=== PATIENT | male | born 1980 | race Hispanic/Latino ===

== ENCOUNTER 2022-11-08 20:39 | Emergency (ER) | payer BC | END 2022-11-08 22:19 | disposition left against medical advice (07) | LOC: EDH 20:39 | DX: T81.31XA Disruption of external operation (surgical) wound, not elsewhere classified, initial encounter (principal); Z53.21 Procedure and treatment not carried out due to patient leaving prior to being seen by health care provider; X58.XXXA Exposure to other specified factors, initial encounter ==

== ENCOUNTER 2025-04-29 18:11 | Emergency (ER) | payer SELFPAY ==
[~2025-04-29] VITALS: Ht 165.1 cm; Wt 85.7 kg
[2025-04-29 19:00] LABS: IMMATURE GRANULOCYTE ABSOLUTE 0.03 K/uL (0-1); NUCLEATED RED BLOOD CELLS 0.0 % (0.0-0.19); PLATELET COUNT (AUTO) 318 K/uL (130-400); RED BLOOD CELL COUNT(AUTO) 5.50 MIL/uL (4.50-6.20); RED CELL DISTRIBUTION WIDTH 12.6 % (11.0-15.5); WHITE BLOOD COUNT (AUTO) 9.7 K/uL (4.8-10.8)
[2025-04-29 19:09] LABS: CREATININE 1.0 mg/dL (0.5-1.3); GLOMERULAR FILTR. RATE CALC 96.0 mL/min (>90); GLUCOSE,RANDOM 106.0 mg/dL (70-105); SODIUM SERUM 138.0 mmol/L (136-145); UREA NITROGEN, BLOOD 13.0 mg/dL (7-18)
[2025-04-29 19:14] LABS: CREATINE KINASE, TOTAL 94.0 U/L (21-232)
--- NOTE | 2025-04-29 19:27 | ERN ---
ED Note History of Present Illness Stated Complaint: CP Chief Complaint: Chest Pain Time Seen by MD: 18:57 Time Seen by Midlevel: 18:57 Dictation: Patient is a 45-year-old male with no significant past medical history who presents to the emergency department with complaints of left-sided intermediate chest pain. Patient reports that last Thursday he slept wrong in his chest started hurting but then it went away and it started again two days ago. Patient reports occasional shortness of breath but denies any current shortness of breath. Denies any upper respiratory symptoms. Patient does report recent travel. Allergies: Coded Allergies: No Known Drug Allergies (Unverified Allergy, Unknown, 04/29/25) Past Medical History Past Medical History: No Pertinent History Surgical History: None RN Note Reviewed/Agreed w/PFSH: Yes Review of System Dictation Constitutional: Negative for fever,chills, and weight loss Eyes: Negative for injury, pain,redness, and discharge ENT: Negative for injury,pain or swelling Cardiovascular: Negative for palpitations, and edema positive for chest pain Respiratory: Negative for , cough, and wheezing, positive for shortness of breath Abdomen/GI: Negative for abdominal pain, nausea, vomiting, diarrhea, and cons tipation Back: Negative for injury and pain : Negative for injury, bleeding and discharge MS/Extremity: Negative for injury and deformity Skin: Negative for rash, and discoloration Neuro: Negative for headache, weakness, numbness, tingling, and seizure Psych: Negative for suicide ideation, homicidal ideation, and hallucinations Initial Vital Sign VS Vital Signs Date Time Temp Pulse Resp B/P (MAP) Pulse Ox O2 Delivery O2 Flow Rate FiO2 04/29/25 18:12 98.4 60 18 144/87 97 Room Air 0 04/29/25 18:16 21 Physical Exam Dictation Vital Signs reviewed General Appearance: Alert, oriented x 3, no acute distress, well developed, nourished. Head and Face: non-traumatic. Eyes: PERRL, pink conjunctivas, eyelid no trauma, anterior chamber with arcus senilis. Ears: Pinnas intact and no signs of trauma or erythema ear canals clear and no discharge TM no erythema Nose: No discharge, no bleeding. Oropharynx: Mouth normal, tongue pink. pharynx clear,no erythema, tonsils no exudates, no abscesses noted, mucous membrane moist Neck: Supple, non-tender, no thyromegaly, no masses, no JVD, no bruits Breast:Deferred Chest:No tenderness, no crepitus, no paradoxical movement, no retractions Lungs:Clear, well-ventilated, symmetric, no rales, no wheezing, no rhonchi, no stridor, good breath sounds bilaterally Heart: Regular rate, regular rhythm, no murmur, no gallops Vascular: no peripheral edema, Abdomen: Soft, positive bowel sounds, nondistended, no guarding, nontender, no rebound, no masses no hepatomegaly, no splenomegaly, no Valente's sign, no hernias. Rectal: Deferred Genital: Deferred Neurological: Normal speech, motor function intact, sensory function intact Musculoskeletal: Neck nontender, full range of motion, back nontender, full range of motion, Extremities: nontender, full range of motion Skin: Color pink, dry, no turgor, no rash, no lacerations, no abrasions, no contusions. Lymphatic: Deferred Results (Laboratory/Radiology) Laboratory/Radiology Laboratory Tests Test 04/29/25 18:54 04/29/25 20:33 White Blood Count 9.7 K/uL (4.8-10.8) Red Blood Count 5.50 MIL/uL (4.50-6.20) Hemoglobin 16.1 g/dL (14.0-18.0) Hematocrit 47.4 % (42-54) Mean Corpuscular Volume 86.2 fL (79-99) Mean Corpuscular Hemoglobin 29.3 pg (27.0-33.0) Mean Corpuscular Hemoglobin Concent 34.0 g/dL (32.0-36.0) Red Cell Distribution Width 12.6 % (11.0-15.5) Platelet Count 318 K/uL (130-400) Mean Platelet Volume 9.8 fL (7.5-10.5) Immature Granulocyte % (Auto) 0.3 % (0-1) Neutrophils (%) (Auto) 67.5 % (40.0-77.0) Lymphocytes (%) (Auto) 24.4 % (21.0-51.0) Monocytes (%) (Auto) 6.7 % (3.0-13.0) Eosinophils (%) (Auto) 0.7 % (0.0-8.0) Basophils (%) (Auto) 0.4 % (0.0-5.0) Neutrophils # (Auto) 6.5 K/uL (1.8-7.7) Lymphocytes # (Auto) 2.4 K/uL (1.0-4.8) Monocytes # (Auto) 0.7 K/uL (0.1-1.0) Eosinophils # (Auto) 0.07 K/uL (0.00-0.70) Basophils # (Auto) 0.04 K/uL (0.00-0.20) Absolute Immature Granulocyte (auto 0.03 K/uL (0-1) Nucleated Red Blood Cells 0.0 % (0.0-0.19) Sodium Level 138 mmol/L (136-145) Potassium Level 3.7 mmol/L (3.5-5.1) Chloride Level 101 mmol/L (101-111) Carbon Dioxide Level 28 mmol/L (21-32) Blood Urea Nitrogen 13 mg/dL (7-18) Creatinine 1.0 mg/dL (0.5-1.3) Glomerular Filtration Rate Calc 96 mL/min (>90) Random Glucose 106 mg/dL (70-105) H Total Calcium 8.7 mg/dL (8.5-10.1) Total Creatine Kinase 94 U/L (21-232) Troponin I High Sensitivity 10 ng/L (4-75) 8 ng/L (4-75) Lipase 30 U/L (16-77) REASON: CHEST PAIN ORDERING PHYSICIAN: JEFF TALLEY MD PROCEDURE: CXR1VW - CHEST 1VW EXAM: CR Chest, 1 View. CLINICAL HISTORY: CHEST PAIN COMPARISON: None provided. FINDINGS: LUNGS: There is no mass, infiltrate, or acute pulmonary abnormality. PLEURAL SPACES: No pleural effusion or pneumothorax. MEDIASTINUM: Cardiac size and mediastinal contours within normal limits. BONES: No aggressive appearing osseous lesion seen. IMPRESSION: No acute cardiopulmonary pathology is evident. /[place] Labs Reviewed?: Yes EKG: (+) rhythm (Sinus rhythm) EKG Comment: Date:04/29/2025 Time:1809 Ventricular rate:62 [place] interval:141 QRS duration:74 QT/QTc:372//377 EKG interpretation: Sinus rhythm Reviewed by ED Attending no STEMI ED Course ED Course Orders Procedure Category Date Status Time 12 Lead Ekg Tracing- EKG 04/29/25 Logged Technical 18:20 Drug Screen Urine LAB 04/29/25 Logged 18:32 Vital Signs Per CPOE 04/29/25 Transmitted Routine 18:32 Chest 1vw RAD 04/29/25 Resulted 18:32 Oxygen By Nc/Pulse Ox CPOE 04/29/25 Transmitted 18:32 Maintain Iv CPOE 04/29/25 Transmitted 18:32 Iv Insertion CPOE 04/29/25 Transmitted 18:32 Cardiac Monitoring CPOE 04/29/25 Transmitted 18:32 Pulse Oximetry With CPOE 04/29/25 Transmitted Vs And Prn 18:32 Cbc With Differential LAB 04/29/25 Complete 18:32 Activity: Br W/Brp CPOE 04/29/25 Transmitted With Assist 18:32 Creatine Kinase, Total LAB 04/29/25 Complete 18:32 Troponin I High LAB 04/29/25 Complete Sensitivity 18:32 Urinalysis Profile LAB 04/29/25 Logged 18:32 Basic Metabolic Panel LAB 04/29/25 Complete 18:32 Lipase LAB 04/29/25 Complete 18:58 Pantoprazole 40mg Inj PHA 04/29/25 Complete (Protonix 40mg Inj 19:30 Troponin I High LAB 04/29/25 Complete Sensitivity 19:36 Current Medications Medications (Trade) Dose Ordered Sig/Jarvis Route PRN Reason Start Time Stop Time Status Last Admin Dose Admin Pantoprazole Sodium (PROTonix 40MG INJ) 40 mg ONCE ONCE IVP 04/29/25 19:30 04/29/25 19:31 DC 04/29/25 19:40 Vital Signs Date Time Temp Pulse Resp B/P (MAP) Pulse Ox O2 Delivery O2 Flow Rate FiO2 04/29/25 19:44 98.6 53 18 132/81 98 Room Air* 0 04/29/25 18:16 98.4 60 18 144/87 97 Room Air* 0 04/29/25 18:12 98.4 60 18 144/87 97 Room Air 0 HEART Score Response (Comments) Value History: Moderate suspicion (+1) 1 EKG: Normal 0 Age: < 45yrs (0) 0 Risk Factors: 1-2 risk factors (+1) 1 Initial Troponin: Normal limit (0) 0 Total 2 Medical Decision Making MDM Patient is a 45-year-old male with no significant past medical history who presents to the emergency department with complaints of left-sided intermediate chest pain. Patient reports that last Thursday he slept wrong in his chest started hurting but then it went away and it started again two days ago. Patient reports occasional shortness of breath but denies any current shortness of breath. Denies any upper respiratory symptoms. Patient does report recent travel. CBC showed no leukocytosis, no anemia, chemistry showed no electrolyte imbal ance, negative troponin x2, chest x-ray showed no acute pathology. Patient currently not having any chest pain. On physical exam patient is in no acute distress, nontoxic appearance, no swelling to lower extremities, not tachycardic, not hypoxic. Patient's symptoms could be related to musculoskeletal. Patient with a low heart score. Patient will be discharged to follow up with PCP. Differential diagnosis: ACS, costochondritis, anxiety, gastritis Need for hospitalization: Patient does not meet criteria for hospitalization. There are no social concerns with this patient. DX & DISP Disposition: Discharge Departure Impression: Primary Impression: Atypical chest pain Condition: Stable Additional Instructions: Your labs were unremarkable. Your chest x-ray were normal. Please follow up with your primary doctor in 1-2 days. If anything worsens please return to ER. FOLLOW-UP WITH PRIMARY CARE PROVIDER IN 1 TO 2 DAYS. TAKE MEDICATIONS DIRECTED HERE IN THE EMERGENCY ROOM. OKAY TO CONTINUE HOME MEDICATIONS UNLESS OTHERWISE DISCUSSED DURING YOUR VISIT IN THE EMERGENCY ROOM TODAY. RETURN TO YOUR NEAREST EMERGENCY ROOM IF SYMPTOMS WORSEN OR IF THERE IS NO IMPROVEMENT. CALL 911 IF YOU NEED IMMEDIATE ASSISTANCE. TAKE TYLENOL [id number] NEE DED AND IF NO CONTRAINDICATIONS ARE PRESENT. INCREASE ORAL HYDRATION. A WOUND CULTURE OR URINE CULTURE WAS ORDERED HERE IN THE EMERGENCY ROOM DEPARTMENT PLEASE FOLLOW-UP WITH PRIMARY CARE PROVIDER AND ADVISE THEM TO GET REPEAT PORTS FROM OUR FACILITY. IF YOU HAD ANY HEMA WRAP/SPLINTS THAT WERE APPLIED HERE, PLEASE DO NOT REMOVE THEM UNTIL YOU SEE YOUR PRIMARY CARE OR SPECIALTY. Referrals: SELF,REFERRAL (PCP) Time of Disposition: 21:27 I have reviewed the case, and I agree with, Diagnosis and Plan [facility] Apr 29, 2025 19:26
--- NOTE | 2025-04-29 20:28 | HMCIMG ---
EXAM: CR Chest, 1 View. CLINICAL HISTORY: CHEST PAIN COMPARISON: None provided. FINDINGS: LUNGS: There is no mass, infiltrate, or acute pulmonary abnormality. PLEURAL SPACES: No pleural effusion or pneumothorax. MEDIASTINUM: Cardiac size and mediastinal contours within normal limits. BONES: No aggressive appearing osseous lesion seen. IMPRESSION: No acute cardiopulmonary pathology is evident. /[place]
[2025-04-29 21:30] VITALS: BP 138/85; PULSE 55; RESP 17; TEMP 98.6; O2SAT 97
--- NOTE | 2025-04-30 07:35 | EKG ---
[facility] Test Date: 2025-04-29 Test Time: 18:09:27 Pat Name: KIN RODGERS Department: ED Room: Gender: M Can Piler: [facility] : 1980 Requested By: JEFF HELTON Order Number: [id number] Reading MD: Loreto Giron Measurements Intervals [place] Rate: 62 P: 11 [place]: 141 QRS: 65 QRSD: 74 T: 2 QT: 372 QTc: 377 Interpretive Statements Sinus rhythm No previous ECG available for comparison Electronically Signed On 04-30-2025 11:11:24 CDT by Loreto Giron Please click the below link to view image of tracing.
== END 2025-04-29 21:34 | disposition home or self-care (01) ==
LOC: EDH 18:11
DX: R07.89 Other chest pain (principal)
CPT/HCPCS: 99285; 96374; 71045; 82550; 84484 ×2; 80048; 83690; 85025; 36415; 93005; J2470